=== PATIENT | female | born 1975 | race Native Hawaiian/Other Pacific Islander ===

== ENCOUNTER 2020-05-23 11:12 | Outpatient (REF) | payer OTHER, SELFPAY | END 2020-05-23 11:13 | disposition home or self-care (01) | LOC: HO.LAB 11:12 | PROVIDERS: PCP Internal Medicine; Visit Provider Internal Medicine | DX: Z20.828 Contact with and (suspected) exposure to other viral communicable diseases (principal) | CPT/HCPCS: 87635 ==

== ENCOUNTER 2020-06-13 11:13 | Outpatient (REF) | payer OTHER, SELFPAY | END 2020-06-13 11:14 | disposition home or self-care (01) | LOC: HO.LAB 11:13 | PROVIDERS: PCP Internal Medicine; Visit Provider Internal Medicine | DX: Z20.828 Contact with and (suspected) exposure to other viral communicable diseases (principal) | CPT/HCPCS: C9803; U0003 ==

== ENCOUNTER 2020-07-04 15:38 | Outpatient (REF) | payer OTHER, SELFPAY ==
[2020-07-06 11:09] LABS: BV Int Neg Control Negative (Negative); BV Int Pos Control Positive (Positive)
[2020-07-08 06:37] LABS: CT PCR NOT DETECTED (Not Detect.); NG PCR NOT DETECTED (Not Detect.)
[2020-07-08 18:37] LABS: HPV mRNA E6/E7 rflx Not Detected (Not Detected)
== END 2020-07-04 15:39 | disposition home or self-care (01) ==
LOC: HO.LAB 15:38
PROVIDERS: Visit Provider Obstetrics & Gynecology
DX: Z01.419 Encounter for gynecological examination (general) (routine) without abnormal findings (principal); Z11.3 Encounter for screening for infections with a predominantly sexual mode of transmission
CPT/HCPCS: 87480; 87491; 87510; 87591; 87624; 87625; 87660; 88142

== ENCOUNTER 2020-09-20 13:11 | Outpatient (REF) | payer OTHER, SELFPAY ==
--- NOTE | ~2020-09-20 | MM_ITS ---
EXAMINATION: MM SCREENING DIGITAL BREAST TOMOSYNTHESIS, BILATERAL CLINICAL INFORMATION: Screening. Asymptomatic. 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 The lifetime risk of breast cancer based on the Tyrer-Cuzick Model is 10%. COMPARISON: Mammography: 10/29/2018, 06/25/2017, 11/01/2015 TECHNIQUE: Digital breast tomosynthesis is performed in both the craniocaudal and mediolateral oblique views along with computer-aided detection (CAD). Synthesized 2D images are generated from the tomosynthesis. FINDINGS: There are scattered areas of fibroglandular density (ACR BI-RADS breast composition Category b). There is chronic dominant mass posterior 3:00 left breast with central biopsy clip marker and circumscribed margins corresponding to the fibroadenoma on history. There is a smaller stable circumscribed nodule posterior 11:00 right breast approximately 1.5 x 1.2 cm. There is no significant mass or developing density. No abnormal calcifications. The axilla and skin contours are unremarkable. MM/MM tomosynthesis screening BI IMPRESSION: 1. No mammographic evidence of malignancy. 2. Stable mass posterior 3:00 left breast and posterior 11:00 right breast. ASSESSMENT: BI-RADS 2: Benign RECOMMENDATION: Routine annual mammography screening. This patient's information was entered into a reminder system with a target due date for their next mammogram.
== END 2020-09-20 13:12 | disposition home or self-care (01) ==
LOC: HO.MAMMO 13:11
PROVIDERS: PCP Internal Medicine; Visit Provider Obstetrics & Gynecology
DX: Z12.31 Encounter for screening mammogram for malignant neoplasm of breast (principal)
CPT/HCPCS: 77063; 77067

== ENCOUNTER 2021-12-21 08:13 | Outpatient (REF) | payer OTHER, SELFPAY ==
[2021-12-21 08:36] LABS: MANUAL DIFF FLAG NO
[2021-12-21 08:39] LABS: Basophils Percent Auto 0.6 % (0-2); Eosinophils Absolute Auto 0.3 X10*3/uL (0.0-0.4); Eosinophils Percent Auto 4.3 % (0-4); Hematocrit 39.6 % (37.0-47.0); Hemoglobin 13.3 g/dl (12.0-16.0); Imm Gran Abs Auto 0.01 X10*3/uL (0.00-0.03); Imm Gran Pct Auto 0.2 % (0.0-0.4); Lymphocytes Absolute Auto 1.6 X10*3/uL (1.2-4.9); Lymphocytes Percent Auto 24.2 % (20-40); Mean Corpuscular HGB Conc 33.6 g/dl (31.0-35.0); Mean Corpuscular Hemoglobin 27.2 pg (27.0-33.0); Mean Platelet Volume 9.3 fL (9.4-12.3); Monocytes Absolute Auto 0.5 X10*3/uL (0.1-1.2); Monocytes Percent Auto 7.9 % (2-11); Neutrophils Absolute Auto 4.1 x10*3/uL (2.0-8.3); Neutrophils Percent Auto 62.8 % (45-73); Platelet Count 337 X10*3/uL (160-400); Red Blood Count 4.89 X10*6/uL (4.20-5.50); Red Cell Distribution Width 13.2 % (11.0-16.0); White Blood Count 6.6 X10*3/uL (4.8-10.8)
[2021-12-21 09:19] LABS: Alanine Aminotransferase 26 U/L (0-31); Albumin Level 4.1 g/dL (3.5-5.0); Alkaline Phosphatase 103 U/L (39-117); Anion Gap 12 (12-20); Aspartate Amino Transferase 17 U/L (5-31); Bilirubin Total 0.5 mg/dL (0.0-1.0); Blood Urea Nitrogen 11 mg/dL (9-16); Calcium 9.1 mg/dL (8.4-10.2); Carbon Dioxide 20 mmol/L (22-29); Chloride 108 mmol/L (96-108); Cholesterol 256 mg/dL; Estimated Glomerular Filt Rate > 60; Glucose Fasting 96 mg/dL (60-99); HDL Cholesterol 47 mg/dL; LDL Cholesterol Calculated 186 mg/dl; Sodium 136 mmol/L (135-145); Total Protein 7.6 g/dL (6.5-8.0); Triglycerides 119 mg/dL
[2021-12-21 09:42] LABS: Thyroid Stimulating Hormone 4.87 uIU/mL (0.32-4.0)
[2021-12-25 05:52] LABS: TS Negative Control Passed; TS Panel A 0; TS Panel B 0; TS Positive Control Passed; TSpotTB Negative (Negative)
[2021-12-26 12:26] LABS: Vitamin D 25-OH, D2 <4 ng/mL; Vitamin D 25-OH, D3 29 ng/mL; Vitamin D 25-OH, Total 29 ng/mL (30-100)
== END 2021-12-21 08:14 | disposition home or self-care (01) ==
LOC: HO.LAB 08:13
PROVIDERS: PCP Internal Medicine; Visit Provider Internal Medicine
DX: Z11.1 Encounter for screening for respiratory tuberculosis (principal); E03.9 Hypothyroidism, unspecified; E66.9 Obesity, unspecified; D64.9 Anemia, unspecified; E55.9 Vitamin D deficiency, unspecified
CPT/HCPCS: 36415; 80053; 80061; 82306; 84443; 85025; 86481

== ENCOUNTER 2022-02-06 14:01 | Outpatient (REF) | payer OTHER, SELFPAY ==
--- NOTE | ~2022-02-06 | US_ITS ---
EXAMINATION: US THYROID CLINICAL INFORMATION: Goiter. COMPARISON: Ultrasound thyroid soft tissues neck 07/02/2018. TECHNIQUE: Linear transducer grayscale and color Doppler examination with attention to the region of the thyroid. FINDINGS: SIZE: Measurements of the thyroid lobes and nodules are given in sagittal, anteroposterior and transverse dimensions respectively. Right Thyroid Lobe: 4.4 x 1.9 x 1.4 cm, volume 5.8 mL. Previously 3.2 x 1.0 x 1.1 cm, volume 2.1 mL. Parenchyma: The gland echotexture is homogeneous. Thyroid vascularity is normal. Left Thyroid Lobe: 3.6 x 1.4 x 1.4 cm, volume 3.6 mL. Previously 2.9 x 0.9 x 1.2 cm, volume 1.7 mL. Parenchyma: The gland echotexture is homogeneous. Thyroid vascularity is normal. Isthmus: 0.3 cm in maximum AP dimension. Previously 0.2 cm. Estimated total number of nodules greater than or equal to 1 cm: 0. [facility] nodules are described as follows: NODES: No lymphadenopathy is seen in the tissue surrounding the thyroid gland. US/US thyroid IMPRESSION: Normal thyroid ultrasound..
== END 2022-02-06 14:02 | disposition home or self-care (01) ==
LOC: HO.US 14:01
PROVIDERS: Visit Provider Internal Medicine
DX: E04.9 Nontoxic goiter, unspecified (principal)
CPT/HCPCS: 76536

== ENCOUNTER 2022-03-08 08:48 | Emergency (ER) | payer OTHER, SELFPAY ==
[2022-03-08 08:57] VITALS: BP 176/97; PULSE 77; RESP 20; TEMP 36.6; O2SAT 99; BMI 34.5
--- NOTE | 2022-03-08 09:55 | ED.GENADULT ---
HPI - General Adult General Chief complaint: General Medical Stated complaint: high blood pressure Time Seen by Provider: 03/08/22 09:21 Source: patient and translator and interpreter Mode of arrival: ambulatory History of Present Illness HPI narrative: 46-year-old female without significant past medical history presents with concerns of having a headache as well as mild dizziness yesterday and when she checked her blood pressure she noted that it was elevated in the 170s over 120s by her home blood pressure machine. She denies any prior history of high blood pressure and denies any associated visual/speech/auditory changes and denies any numbness/tingling/weakness. Patient is currently denies any headache or dizziness. Patient denies any chest pain/palpitations, and at this time otherwise feels well. Related Data Previous Rx's Medication Instructions Recorded melatonin 10 mg tablet 10 mg PO BEDTIME PRN sleep 90 days 08/15/21 #90 tabs Allergies Allergy/AdvReac Type Severity Reaction Status Date / Time oxycodone [OXYCODONE] Allergy Intermediate TACHYCARDIA Verified 12/25/21 16:30 prednisolone Allergy Intermediate hives Verified 12/25/21 16:30 Review of Systems Review of Systems: Pertinent positives and negatives as stated in HPI 10 point review of systems otherwise negative. [facility] Past Medical History Source: nursing notes reviewed Medical History Goiter Hypothyroidism Hypovitaminosis D Obese Physical exam Pure hypercholesterolemia Surgical History No pertinent past surgical history Family History Family History Father No problems noted. Mother No problems noted. Social History Social History Housing: House Alcohol intake: never Patient Tobacco Use Status: Never used Tobacco e-Cigarette/Vaping Use: Never Used Second Hand Smoke Exposure: No Advance Directives: No Advance Directives Information Provided: Yes service: No Current occupational status: employed Current occupational exposures/hazards: No Sexual orientation: Straight/Heterosexual Gender identity: Female Cognitive needs: No Hearing needs: No Vision needs: Yes Physical Exam ED Vital Signs: Vital Signs - 24 hr 03/08/22 08:57 Temperature 97.9 F Pulse Rate 77 Respiratory Rate 20 Blood Pressure 176/97 H Pulse Oximetry 99 Oxygen Delivery Method Room Air BMI result Body Mass Index 34.5 VITAL SIGNS: Reviewed. GENERAL: Well developed, well nourished, in no acute distress. HEAD: Normocephalic/atraumatic EYES: PERRLA, EOMI EARS: Ext canals without abnormality OROPHARYNX: no oral lesions noted, posterior pharynx clear LUNGS: Normal breath sounds. No adventitious sounds or accessory muscle use. SpO2<99> CARDIOVASCULAR: Regular rate and rhythm without noted murmurs, no JVD or lower extremity edema. ABDOMEN: Soft, non-tender, non-distended with bowel sounds. MUSCULOSKELETAL: No tenderness, deformities, or effusions noted on gross inspection. EXTREMITIES: No cyanosis, clubbing or edema. SKIN: Inspection of the skin reveals no rashes NEUROLOGIC: Alert and oriented x 4. Strength and sensation to light touch were grossly intact x 4, no facial asymmetry, no pronator drift, cranial nerves 2-12 are grossly intact, heel-tom is without abnormality and patient ambulates with a steady gait. Course Course Course Narrative: 46-year-old female with history and clinical presentation suggestive of elevated blood pressure will insure no cardiopulmonary etiology to contribute as well as testing for COVID-19. Patient is asymptomatic at this time. Review of all investigations without acute findings. These results were discussed with patient at bedside and as patient is asymptomatic will initiate a lifestyle changes with strong recommendations to follow up with the primary care provider. Medical Decision Making Lab Data Result diagrams: 03/08/22 10:22 03/08/22 10:22 Labs: Lab Results 03/08/22 03/08/22 03/08/22 Range/Units 10:22 10:22 10:22 WBC 10.0 (4.8-10.8) X10*3/uL RBC 5.27 (4.20-5.50) X10*6/uL Hgb 14.1 (12.0-16.0) g/dl Hct 42.1 (37.0-47.0) % MCV 79.9 L (80.0-98.0) fL MCH 26.8 L (27.0-33.0) pg MCHC 33.5 (31.0-35.0) g/dl RDW 13.5 (11.0-16.0) % Plt Count 285 (160-400) X10*3/uL MPV 9.4 (9.4-12.3) fL Immature Gran % (Auto) 0.3 (0.0-0.4) % Neut % (Auto) 66.1 (45-73) % Lymph % (Auto) 23.2 (20-40) % [place] % (Auto) 6.9 (2-11) % Eos % (Auto) 3.1 (0-4) % Baso % (Auto) 0.4 (0-2) % Lymph # (Auto) 2.3 (1.2-4.9) X10*3/uL [place] # (Auto) 0.7 (0.1-1.2) X10*3/uL Eos # (Auto) 0.3 (0.0-0.4) X10*3/uL Baso # (Auto) 0.0 (0.0-0.2) X10*3/uL Abs Immat Gran (auto) 0.03 (0.00-0.03) X10*3/uL Absolute Neuts (auto) 6.6 (2.0-8.3) x10*3/uL Absolute Nucleated RBC 0.000 (0.0-0.012) X10*3/uL Nucleated RBC % (auto) 0.0 (0.0-0.2) /100WBC Sodium 136 (135-145) mmol/L Potassium 3.9 (3.3-5.1) mmol/L Chloride 105 (96-108) mmol/L Carbon Dioxide 23 (22-29) mmol/L Anion Gap 12 (12-20) BUN 7 L (9-16) mg/dL Creatinine 0.76 (0.5-1.4) mg/dL Estim Creat Clear Calc 106.3 Estimated GFR > 60 Random Glucose 92 (60-115) mg/dL Calcium 8.7 (8.4-10.2) mg/dL Total Bilirubin 0.4 (0.0-1.0) mg/dL AST 17 (5-31) U/L ALT 20 (0-31) U/L Alkaline Phosphatase 100 (39-117) U/L Troponin I High Sens < 3.5 (<3.5-17.0) ng/L Total Protein 7.4 (6.5-8.0) g/dL Albumin 4.0 (3.5-5.0) g/dL COVID-19 (EMILIE) (Negative) COVID-19 Clin Com 03/08/22 Range/Units 10:22 WBC (4.8-10.8) X10*3/uL RBC (4.20-5.50) X10*6/uL Hgb (12.0-16.0) g/dl Hct (37.0-47.0) % MCV (80.0-98.0) fL MCH (27.0-33.0) pg MCHC (31.0-35.0) g/dl RDW (11.0-16.0) % Plt Count (160-400) X10*3/uL MPV (9.4-12.3) fL Immature Gran % (Auto) (0.0-0.4) % Neut % (Auto) (45-73) % Lymph % (Auto) (20-40) % [place] % (Auto) (2-11) % Eos % (Auto) (0-4) % Baso % (Auto) (0-2) % Lymph # (Auto) (1.2-4.9) X10*3/uL [place] # (Auto) (0.1-1.2) X10*3/uL Eos # (Auto) (0.0-0.4) X10*3/uL Baso # (Auto) (0.0-0.2) X10*3/uL Abs Immat Gran (auto) (0.00-0.03) X10*3/uL Absolute Neuts (auto) (2.0-8.3) x10*3/uL Absolute Nucleated RBC (0.0-0.012) X10*3/uL Nucleated RBC % (auto) (0.0-0.2) /100WBC Sodium (135-145) mmol/L Potassium (3.3-5.1) mmol/L Chloride (96-108) mmol/L Carbon Dioxide (22-29) mmol/L Anion Gap (12-20) BUN (9-16) mg/dL Creatinine (0.5-1.4) mg/dL Estim Creat Clear Calc Estimated GFR Random Glucose (60-115) mg/dL Calcium (8.4-10.2) mg/dL Total Bilirubin (0.0-1.0) mg/dL AST (5-31) U/L ALT (0-31) U/L Alkaline Phosphatase (39-117) U/L Troponin I High Sens (<3.5-17.0) ng/L Total Protein (6.5-8.0) g/dL Albumin (3.5-5.0) g/dL COVID-19 (EMILIE) Negative (Negative) COVID-19 Clin Com See Note ECG Data Attestation: I personally reviewed and interpreted this ECG as follows: Prior ECG tracings: available for review Interpretation: Normal sinus rhythm, HR-70, no STEMI, GA/QRS/QTC are within normal limits. Discharge Plan Discharge Clinical Impression: Elevated blood pressure reading Patient Disposition: Home, Self-Care Instructions: DASH Eating Plan (ED), Hypertension (ED) Additional Instructions: 1. Se descubri? que tiene presi?n arterial elevada, el primer paso es cambios en el estilo de speedy, se le case proporcionado recomendaciones para consideraciones diet?ivone. [place] incluir?a aumentar el nivel de actividad al caminar en combinaci?n con la reducci?n de peso. 2. Llame hoy mismo al consultorio de east proveedor de atenci?n primaria para programar justo jason de reevaluaci?n. Regrese a la christophe de emergencias si los s?ntomas empeoran. Prescriptions: No Action melatonin 10 mg tablet 10 mg PO BEDTIME PRN (Reason: sleep) 90 Days Qty: 90 0RF Referrals: Caro Alcazar MD [Primary Care Provider] - Print Language: Citizen Of [place]
--- NOTE | 2022-03-08 10:01 | ECG_ITS ---
Test Reason : Hypertension Blood Pressure : / mmHG Vent. Rate : 070 BPM Atrial Rate : 070 BPM P-R Int : 162 ms QRS Dur : 084 ms QT Int : 412 ms P-R-T Axes : 066 005 028 degrees QTc Int : 444 ms Normal sinus rhythm Normal ECG When compared with ECG of 08-JUL-2011 16:55, Vent. rate has decreased BY 37 BPM Referred By: Cady Nathan Electronically Signed By:CHARLENE GARCIA
[2022-03-08 10:29] LABS: Basophils Percent Auto 0.4 % (0-2); Eosinophils Absolute Auto 0.3 X10*3/uL (0.0-0.4); Eosinophils Percent Auto 3.1 % (0-4); Hematocrit 42.1 % (37.0-47.0); Hemoglobin 14.1 g/dl (12.0-16.0); Imm Gran Abs Auto 0.03 X10*3/uL (0.00-0.03); Imm Gran Pct Auto 0.3 % (0.0-0.4); Lymphocytes Absolute Auto 2.3 X10*3/uL (1.2-4.9); Lymphocytes Percent Auto 23.2 % (20-40); MANUAL DIFF FLAG NO; Mean Corpuscular HGB Conc 33.5 g/dl (31.0-35.0); Mean Corpuscular Hemoglobin 26.8 pg (27.0-33.0); Mean Corpuscular Volume 79.9 fL (80.0-98.0); Mean Platelet Volume 9.4 fL (9.4-12.3); Monocytes Absolute Auto 0.7 X10*3/uL (0.1-1.2); Monocytes Percent Auto 6.9 % (2-11); Neutrophils Absolute Auto 6.6 x10*3/uL (2.0-8.3); Neutrophils Percent Auto 66.1 % (45-73); Platelet Count 285 X10*3/uL (160-400); Red Blood Count 5.27 X10*6/uL (4.20-5.50); Red Cell Distribution Width 13.5 % (11.0-16.0)
[2022-03-08 10:46] LABS: Alanine Aminotransferase 20 U/L (0-31); Alkaline Phosphatase 100 U/L (39-117); Anion Gap 12 (12-20); Aspartate Amino Transferase 17 U/L (5-31); Bilirubin Total 0.4 mg/dL (0.0-1.0); Blood Urea Nitrogen 7 mg/dL (9-16); Calcium 8.7 mg/dL (8.4-10.2); Carbon Dioxide 23 mmol/L (22-29); Chloride 105 mmol/L (96-108); Creatinine Clr Calc Pharmacy 106.3; Estimated Glomerular Filt Rate > 60; Glucose Random 92 mg/dL (60-115); Potassium 3.9 mmol/L (3.3-5.1); Sodium 136 mmol/L (135-145); Total Protein 7.4 g/dL (6.5-8.0)
[2022-03-08 10:49] LABS: COVID-19 Test Negative (Negative); IDNOW Serial# 16C4AD1C
[2022-03-08 10:52] LABS: Troponin-I High Sensitivity < 3.5 ng/L (<3.5-17.0)
== END 2022-03-08 11:40 | disposition home or self-care (01) ==
PROVIDERS: Emergency Provider Student in an Organized Health Care Education/Training Program; PCP Internal Medicine
DX: R51.9 Headache, unspecified (principal); R03.0 Elevated blood-pressure reading, without diagnosis of hypertension; Z20.822 Contact with and (suspected) exposure to COVID-19
CPT/HCPCS: 80053; 84484; 85025; 87635; 93005; 99283

== ENCOUNTER 2022-04-30 08:01 | Outpatient (REF) | payer OTHER, SELFPAY ==
[2022-04-30 10:46] LABS: Alanine Aminotransferase 58 U/L (0-31); Albumin Level 4.4 g/dL (3.5-5.0); Alkaline Phosphatase 141 U/L (39-117); Anion Gap 16 (12-20); Aspartate Amino Transferase 33 U/L (5-31); Bilirubin Total 0.6 mg/dL (0.0-1.0); Blood Urea Nitrogen 11 mg/dL (9-16); Carbon Dioxide 23 mmol/L (22-29); Chloride 103 mmol/L (96-108); Cholesterol 256 mg/dL; Estimated Glomerular Filt Rate > 60; Glucose Fasting 92 mg/dL (60-99); HDL Cholesterol 53 mg/dL; LDL Cholesterol Calculated 181 mg/dl; Potassium 3.9 mmol/L (3.3-5.1); Sodium 138 mmol/L (135-145); Total Protein 7.7 g/dL (6.5-8.0); Triglycerides 114 mg/dL
[2022-04-30 11:08] LABS: Free T4 (Free Thyroxine) 0.81 ng/dL (0.71-1.85); Thyroid Stimulating Hormone 20.01 uIU/mL (0.32-4.0)
[2022-05-02 13:32] LABS: Thyroid Peroxidase Antibodies 136 IU/mL (<9)
[2022-05-02 17:11] LABS: Thyroglobulin Antibodies 8 IU/mL (< or = 1)
== END 2022-04-30 08:02 | disposition home or self-care (01) ==
LOC: HO.10HDL 08:01
PROVIDERS: Visit Provider Internal Medicine
DX: E78.5 Hyperlipidemia, unspecified (principal); E03.9 Hypothyroidism, unspecified; E66.9 Obesity, unspecified
CPT/HCPCS: 36415; 80053; 80061; 84439; 84443; 86376; 86800

== ENCOUNTER 2022-08-16 08:52 | Outpatient (REF) | payer OTHER, SELFPAY ==
[2022-08-16 11:30] LABS: Alanine Aminotransferase 25 U/L (0-31); Albumin Level 3.9 g/dL (3.5-5.0); Alkaline Phosphatase 95 U/L (39-117); Anion Gap 12 (12-20); Aspartate Amino Transferase 18 U/L (5-31); Bilirubin Total 0.4 mg/dL (0.0-1.0); Blood Urea Nitrogen 13 mg/dL (9-16); Calcium 9.1 mg/dL (8.4-10.2); Carbon Dioxide 22 mmol/L (22-29); Chloride 107 mmol/L (96-108); Cholesterol 228 mg/dL; Estimated Glomerular Filt Rate > 60; Glucose Fasting 92 mg/dL (60-99); HDL Cholesterol 47 mg/dL; LDL Cholesterol Calculated 141 mg/dl; Potassium 3.7 mmol/L (3.3-5.1); Sodium 137 mmol/L (135-145); Total Protein 7.1 g/dL (6.5-8.0); Triglycerides 202 mg/dL
[2022-08-16 11:34] LABS: Thyroid Stimulating Hormone 2.23 uIU/mL (0.32-4.0)
== END 2022-08-16 08:53 | disposition home or self-care (01) ==
LOC: HO.10HDL 08:52
PROVIDERS: Visit Provider Internal Medicine
DX: E78.5 Hyperlipidemia, unspecified (principal); R74.01 Elevation of levels of liver transaminase levels; E03.9 Hypothyroidism, unspecified
CPT/HCPCS: 36415; 80053; 80061; 84443

== ENCOUNTER 2022-11-07 09:14 | Outpatient (REF) | payer OTHER, SELFPAY ==
[2022-11-07 11:43] LABS: Thyroid Stimulating Hormone 1.71 uIU/mL (0.32-4.0)
[2022-11-09 16:58] LABS: TS Negative Control Passed; TS Panel A 0; TS Panel B 0; TS Positive Control Passed; TSpotTB Negative (Negative)
== END 2022-11-07 09:15 | disposition home or self-care (01) ==
LOC: HO.10HDL 09:14
PROVIDERS: Visit Provider Internal Medicine
DX: Z11.1 Encounter for screening for respiratory tuberculosis (principal); E03.9 Hypothyroidism, unspecified
CPT/HCPCS: 36415; 84443; 86481

== ENCOUNTER 2023-08-20 09:04 | Outpatient (REF) | payer OTHER, SELFPAY ==
[2023-08-20 12:16] LABS: Thyroid Stimulating Hormone 7.54 uIU/mL (0.32-4.0); Vitamin D 25-OH Total 34.9 ng/mL (>30)
== END 2023-08-20 09:05 | disposition home or self-care (01) ==
LOC: HO.10HDL 09:04
PROVIDERS: Visit Provider Internal Medicine
DX: E55.9 Vitamin D deficiency, unspecified (principal); E03.9 Hypothyroidism, unspecified
CPT/HCPCS: 36415; 82306; 84443

== ENCOUNTER 2023-08-21 15:47 | Outpatient (AMB) | payer OTHER, SELFPAY ==
[2023-08-21 15:56] VITALS: BP 140/96; BMI 35.2
--- NOTE | 2023-08-21 15:56 | MHC.PC.OV ---
Vital Signs 08/21/23 15:56 08/21/23 16:30 Height 5 ft 6 in Weight 218 lb BMI 35.2 BP 140/96 H 140/90 H Blood Pressure Location Lt brachial Lt brachial Position Sitting Sitting Intake Visit Reasons: PE Intake Note: Patient here for a physical exam End Finder Twisting Department Required: No Accompanied by: Self / Same As Patient Allergies oxycodone [OXYCODONE] Allergy (Intermediate, Verified 08/21/23 16:05) TACHYCARDIA prednisolone Allergy (Intermediate, Verified 08/21/23 16:05) hives Medication List - Last Reconciled 08/21/23 by Caro Desir MD levothyroxine 112 mcg PO DAILY 90 days Tobacco use date assessed: 08/21/23 Dental Screening Dental Screen Date: 08/21/23 Did you have a dental visit in the last 12 months?: Yes Did you have a dental problem in the last 6 months where you did not have access to dental care?: No Was dental information given to patient?: Patient has dentist HPI HPI Comments History of Present Illness Details This is a 48-year-old female that comes for her physical exam. Last mammogram was done 2020 and I will order a mammogram. Pap smear done 2019. Has never had a colonoscopy and has no family history of colon cancer. I will order Cologuard. Labs were discussed and she is aware that TSH was elevated and levothyroxine dose was change. She is aware she needs to repeated in 6 weeks. Has onychomycosis and wants treatment. Patient aware that terbinafine can cause transaminitis and liver panel will be checked in 3 months. [facility] Medical History (Updated 08/21/23 @ 16:22 by Caro Desir MD) Pure hypercholesterolemia Goiter Physical exam Hypovitaminosis D Obese Hypothyroidism Surgical History (Updated 08/21/23 @ 16:09 by Caro Desir MD) Previous section No pertinent past surgical history Family History (Updated 08/21/23 @ 16:11 by Caro Desir MD) Father No problems noted. Mother Brain aneurysm Social History Housing: House Alcohol intake: never Patient Tobacco Use Status: Never used Tobacco e-Cigarette/Vaping Use: Never Used Second Hand Smoke Exposure: No service: No Current occupational status: employed Current occupational exposures/hazards: No Sexual orientation: Straight/Heterosexual Gender identity: Female Cognitive needs: No Hearing needs: No Vision needs: Yes Female Reproductive History Menstrual Age of Menarche: 13 Questionnaire PHQ-9 Over the last 2 weeks, how often have you been bothered by any of the following problems? 1. Little interest or pleasure in doing things: not at all 2. Feeling down, depressed, or hopeless: not at all 3. Trouble falling or staying asleep, or sleeping too much: not at all 4. Feeling tired or having little energy: not at all 5. Poor appetite or overeating: not at all 6. Feeling bad about yourself - or that you are a failure or have let yourself or your family down: not at all 7. Trouble concentrating on things, such as reading the newspaper or watching television: not at all 8. Moving or speaking so slowly that other people could have noticed. Or the opposite - being so fidgety or restless that you have been moving around a lot more than usual: not at all 9. Thoughts that you would be better off or of hurting yourself in some way: not at all Total score: 0 Depression Screening Interpretation: Negative Depression Screening Done: Yes 95837 - PHQ-9 Billing: Yes Source: Developed by Drs. Bruce Apple, Claire Alejandro, Anand Marte and colleagues, with an educational rema from [employer]. Thrive Questionnaire Date Thrive assessed: 08/21/23 I am a: Patient What is your living situation today?: I have a steady place to live Within the past 12 months, did the food you bought not last and you didn't have the money to get more?: Never true Within the past 12 months, did you worry whether your food would run out before you got money to buy more?: Never true Do you have trouble paying for medicines?: No Do you have trouble getting transportation to medical appointments?: No Do you have trouble paying your heating and electricity bill?: No Do you have trouble taking care of your child, family member or friend?: No Do you have trouble with day-to-day activities such as bathing, preparing meals, shopping, managing finances, etc.?: No Are you currently unemployed and looking for a job?: No Are you interested in more education?: No Please select the resources that you would like help with: None Currently or been in a relationship where the following occur: no concerns reported THRIVE Score: 0 AUDIT C Alcohol Use Questionnaire (AUDIT-C) 1. How often do you have a drink containing alcohol?: Never Total Score: 0 MARGAUX-7 AMB Questionnaire MARGAUX-7 Date MARGAUX - 7 assessed: 08/21/23 Feeling nervous, anxious, or on edge: 0 = Not at all Not being able to stop or control worryin = Not at all Worrying too much about different things: 0 = Not at all Trouble relaxin = Not at all Being so restless that it is hard to sit still: 0 = Not at all Becoming easily annoyed or irritable: 0 = Not at all Feeling afraid as if something awful might happen: 0 = Not at all Total MARGAUX-7 score (0-4 normal; 5-9 mild; 10-14 moderate; 15-21 severe): 0 Source: Developed by Drs. Bruce Apple, Claire Alejandro, Anand Marte and colleagues, with an educational rema from [employer]. MARGAUX-7 Assessment Billing MARGAUX-7 Assessment Tool: MARGAUX-7 Assessment 32782 Review of Systems Const All systems reviewed & are unremarkable except as noted in HPI and below Eyes Reports no additional complaints, Denies change in vision and Denies other visual disturbances Card Denies chest pain at rest, Denies chest pain with activity, Denies edema, Denies irregular heart rhythm, Denies claudication, Denies dyspnea, Denies dyspnea on exertion, Denies orthopnea, Denies paroxysmal nocturnal dyspnea and Denies slow heart rate Resp Denies cough, Denies dyspnea and Denies dyspnea on exertion GI Denies abdominal pain, Denies change in bowel habits, Denies excessive flatus, Denies nausea and Denies vomiting Denies urinary incontinence, Denies urinary hesitancy and Denies urinary urgency Musc Denies abnormal gait, Denies atrophy, Denies deformity and Denies limited range of motion Skin/Breast Denies bleeding lesions, Denies changing lesions and Denies rash Neuro Denies abnormal gait, Denies behavioral changes, Denies confusion and Denies lack of coordination Psych Denies behavioral changes and Denies confusion Physical exam (Primary Care) Vital Signs: Last Vital Signs BP 140/96 H 08/21/23 15:56 BMI result Body Mass Index 35.2 Tobacco/Smoking Status: Tobacco use Status Tobacco use date assessed 08/21/23 08/21/23 16:01 Patient Tobacco Use Status Never used Tobacco 08/21/23 16:01 e-Cigarette/Vaping Use Never Used 08/21/23 16:01 PHQ-9: PHQ-9 Score PHQ-9: Total score 0 08/21/23 16:13 Depression Screening Interpretation: Negative Thrive Assessment: Date of Thrive Assessment Date Thrive assessed 08/21/23 08/21/23 16:01 Currently or been in a relationship where the following occur: no concerns reported Const General: No confusion Orientation/consciousness: patient oriented x3 and No confusion HENMT Head: Yes normal to inspection, Yes normocephalic and Yes atraumatic Ears: external ears normal Eyes General: appearance normal, both eyes and all related structures Eyelids: Yes eyelids normal Conjunctivae: conjunctivae normal Neck Neck: Yes normal visual inspection and Yes supple Resp Effort & Inspection: normal respiratory effort Auscultation: clear to auscultation bilaterally Cardio Jugular venous distension: no JVD Rate: regular rate Rhythm: regular rhythm Heart sounds: S1 normal heart sound present and S2 normal heart sound present GI Inspection: Yes normal to inspection Palpation (GI): Soft to palpation and nontender Auscultation: normal bowel sounds Skin General skin exam: no rashes or lesions noted Neuro General: patient oriented x3, no focal motor deficits and No confusion Extrem General: Yes full ROM Psych Appearance: grossly normal Office Procedures Flu Questionnaire Does the patient have a severe egg allergy?: No Immunizations flu vacc [id number] 6mos up(PF) 60 mcg(15 mcgx4)/0.5 mL IM syringe Performing Provider: Caro Desir MD [facility] Documented (not given) by: KHURRAM Carlos on 08/21/23 16:01 Reason Not Given: Patient Refused Assessment and Plan Assessment & Plan (1) Physical exam: Code(s): Z00.00 - Encounter for general adult medical examination without abnormal findings Plan: Repeat in a year. Orders: Orders Influenza [id number] Immunization Today Z23 - Encounter for immunization MM screening mammo BI Today Z12.31 - Encounter for screening mammogram for malignant neoplasm of breast Liver Panel 3 Months B35.1 - Tinea unguium Referrals Cologuard Test Z12.11 - Encounter for screening for malignant neoplasm of colon, Z12.12 - Encounter for screening for malignant neoplasm of rectum Medications: New terbinafine HCl 250 mg PO DAILY 90 tabs 0RF 90 days B35.1 - Tinea unguium Coding Level of Care Code Est Pt Prev Care 40-64y(58656) Diagnoses Physical exam Z00.00 Additional Codes MARGAUX-7 Assessment Billing - MARGAUX-7 Assessment Tool: MARGAUX-7 Assessment 42926 ([id number]) Time Spent (min) 32
[2023-08-21 16:30] VITALS: BP 140/90
== END 2023-08-21 16:18 | disposition home or self-care (01) ==
PROVIDERS: Visit Provider Internal Medicine
DX: Z00.00 Encounter for general adult medical examination without abnormal findings (principal); E03.9 Hypothyroidism, unspecified; E66.9 Obesity, unspecified; Z68.35 Body mass index [BMI] 35.0-35.9, adult
CPT/HCPCS: 99396

== ENCOUNTER → 2023-10-13 13:45 | Outpatient (BNV) | payer OTHER, SELFPAY | PROVIDERS: PCP Internal Medicine; Visit Provider Radiology Diagnostic Radiology | DX: Z12.31 Encounter for screening mammogram for malignant neoplasm of breast (principal) | CPT/HCPCS: 77063; 77067 ==

== ENCOUNTER 2023-10-13 15:13 | Outpatient (REF) | payer OTHER, SELFPAY ==
--- NOTE | ~2023-10-13 | MM_ITS ---
EXAMINATION: MM SCREENING DIGITAL BREAST TOMOSYNTHESIS, BILATERAL CLINICAL INFORMATION: Screening. Asymptomatic. COMPARISON: Mammography: This study is compared with prior exams dating back to 2017. TECHNIQUE: Digital breast tomosynthesis is performed in both the craniocaudal and mediolateral oblique views along with computer-aided detection (CAD). Synthesized 2D images are generated from the tomosynthesis. FINDINGS: There are scattered areas of fibroglandular density (ACR BI-RADS breast composition Category b). There are no significant masses, abnormal calcifications, or other abnormalities. There is a tissue marker associated with a benign, previously biopsied, unchanged 37 mm oval mass of the upper outer quadrant of the left breast. This was documented to be a fibroadenoma. MM/MM tomosynthesis screening BI IMPRESSION: No mammographic evidence of malignancy. ASSESSMENT: BI-RADS BI-RADS 2 - Benign Findings RECOMMENDATION: Routine annual mammography screening. 1 year F/U This examination should not preclude the clinical evaluation of a suspicious palpable abnormality. This patient's information was entered into a reminder system with a target due date for their next mammogram.
== END 2023-10-13 15:14 | disposition home or self-care (01) ==
LOC: HO.MAMMO 15:13
PROVIDERS: PCP Internal Medicine; Visit Provider Internal Medicine
DX: Z12.31 Encounter for screening mammogram for malignant neoplasm of breast (principal)
CPT/HCPCS: 77063; 77067

== ENCOUNTER 2024-05-21 08:18 | Outpatient (REF) | payer OTHER, SELFPAY ==
[2024-05-21 10:43] LABS: Alanine Aminotransferase 59 U/L (0-31); Albumin Level 4.1 g/dL (3.5-5.0); Alkaline Phosphatase 140 U/L (39-117); Aspartate Amino Transferase 36 U/L (5-31); Bilirubin Direct 0.1 mg/dL (0.0-0.5); Bilirubin Total 0.4 mg/dL (0.0-1.0); Thyroid Stimulating Hormone 1.92 uIU/mL (0.32-4.0); Total Protein 7.6 g/dL (6.5-8.0)
== END 2024-05-21 08:19 | disposition home or self-care (01) ==
LOC: HO.10HDL 08:18
PROVIDERS: Visit Provider Internal Medicine
DX: B35.1 Tinea unguium (principal); E03.9 Hypothyroidism, unspecified
CPT/HCPCS: 36415; 80076; 84443

== ENCOUNTER 2024-06-21 16:04 | Outpatient (AMB) | payer OTHER, SELFPAY ==
--- NOTE | 2024-06-21 16:31 | A.OFFPC_ITS ---
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 Her last thyroid function test this month reported normal levels while on levothyroxine 112 mcg daily. The patient has a history of hypothyroidism, managed with levothyroxine with stable control and no concerns noted during this visit. She presents with elevated blood pressure, currently recorded as 150/90 mmHg. Three weeks later, a follow-up is intended to determine whether antihypertensive medication is necessary. The patient denies a history of chest pain or shortness of breath. She describes a weight increase from a previous 218 pounds to her current 230 pounds, resulting in a BMI of 37.3, indicating obesity class II. No alcohol consumption is reported, and the patient has maintained a routine of walking as part of her exercise. [facility] Medical History (Updated 06/21/24 @ 19:29 by Caro Desir MD) Pure hypercholesterolemia Goiter Physical exam Hypovitaminosis D Obese Hypothyroidism Surgical History Previous section No pertinent past surgical history Family History Father No problems noted. Mother Brain aneurysm Social History Housing: House Alcohol intake: never Patient Tobacco Use Status: Never used Tobacco e-Cigarette/Vaping Use: Never Used Second Hand Smoke Exposure: No service: No Current occupational status: employed Current occupational exposures/hazards: No Sexual orientation: Straight/Heterosexual Gender identity: Female Cognitive needs: No Hearing needs: No Vision needs: Yes Female Reproductive History Menstrual Age of Menarche: 13 Questionnaire Thrive Questionnaire Date Thrive assessed: 08/21/23 MARGAUX-7 AMB Questionnaire MARGAUX-7 Date MARGAUX - 7 assessed: 08/21/23 Source: Developed by Drs. Bruce Apple, Claire Alejandro, Anand Marte and colleagues, with an educational rema from [email or web address]. Review of Systems Const All systems reviewed & are unremarkable except as noted in HPI and below Card Denies chest pain at rest, Denies chest pain with activity, Denies edema, Denies irregular heart rhythm, Denies claudication, Denies dyspnea, Denies dyspnea on exertion, Denies orthopnea, Denies paroxysmal nocturnal dyspnea and Denies slow heart rate Resp Denies cough, Denies dyspnea and Denies dyspnea on exertion GI Denies abdominal pain, Denies change in bowel habits, Denies excessive flatus, Denies nausea and Denies vomiting Neuro Denies behavioral changes and Denies lack of coordination Psych Denies behavioral changes Physical exam (Primary Care) Vital Signs: Last Vital Signs BP 150/90 H 06/21/24 16:33 BMI result Body Mass Index 37.3 BMI Assessment/Plan discussion: High BMI High, discussed plan: lifestyle, weight reduction, dietary and physical activity Tobacco/Smoking Status: Tobacco use Status Tobacco use date assessed 08/21/23 06/21/24 16:40 Patient Tobacco Use Status Never used Tobacco 06/21/24 16:40 e-Cigarette/Vaping Use Never Used 06/21/24 16:40 Thrive Assessment: Date of Thrive Assessment Date Thrive assessed 08/21/23 06/21/24 16:40 Resp Effort & Inspection: normal respiratory effort Auscultation: clear to auscultation bilaterally Cardio Jugular venous distension: no JVD Rate: regular rate Rhythm: regular rhythm Heart sounds: S1 normal heart sound present and S2 normal heart sound present Extrem General: Yes full ROM Office Procedures Flu Questionnaire Does the patient have a severe egg allergy?: No Immunizations Fluarix Triv [id number] (PF) 45 mcg (15 mcg x 3)/0.5 mL IM syringe Performing Provider: Caro Desir MD Performing Location: [facility] [place] [facility] Documented (not given) by: CaroKHURRAM Vásquez on 06/21/24 16:44 Reason Not Given: Patient Refused Coding Level of Care Code Est Pt Level 3 (17172) Complex EM visit Add On G2211 Diagnoses Hypertension I10 Hypothyroidism E03.9 Class 2 obesity with body mass index (BMI) of 37.0 to 37.9 in adult E66.812; Z 68.37 Time Spent (min) 19 Assessment & Plan Assessment & Plan (1) Hypertension: Code(s): I10 - Essential (primary) hypertension Category: Medical (2) Hypothyroidism: Code(s): E03.9 - Hypothyroidism, unspecified Category: Medical (3) Class 2 obesity with body mass index (BMI) of 37.0 to 37.9 in adult: Code(s): E66.812 - Obesity, class 2; Z68.37 - Body mass index [BMI] 37.0-37.9, adult Category: Medical Plan - Essential Hypertension: Scheduled a follow-up in three weeks to reassess blood pressure levels and consider the necessity of antihypertensive medication. - Obesity Class II: Advised on weight management strategies, including increased aerobic exercise and dietary modifications to reduce salt intake. - Hypothyroidism: Continue current levothyroxine dosage as thyroid levels are stable. Patient was informed and verbally consented to the use of an ambient scribe for clinic note documentation during this visit. I discussed with the patient the normal results of her thyroid function tests, and we agreed that continuing the current levothyroxine dosage is appropriate. Regarding her elevated blood pressure, I emphasized the importance of dietary salt reduction and increased physical activity, specifically recommending 30 minutes of aerobic exercise five times per week. We decided that a follow-up appointment in three weeks is necessary to evaluate whether antihypertensive medications will be required. I also encouraged lifestyle changes to address her obesity, noting that weight loss could positively impact her blood pressure and overall health. The patient expressed understanding and commitment to these recommendations. Orders: Orders Lipid Panel Today E78.00 - Pure hypercholesterolemia, unspecified, E78.5 - Hyperlipidemia, unspecified Vitamin D 25-OH Total Today E55.9 - Vitamin D deficiency, unspecified Influenza [id number] Immunization Today Z23 - Encounter for immunization Comprehensive Met. Panel Today E78.00 - Pure hypercholesterolemia, unspecified Thyroid Stimulating Hormone Today E03.9 - Hypothyroidism, unspecified Patient Instructions: - Continue taking levothyroxine 112 mcg daily. - Return for a blood pressure check in three weeks. - Reduce dietary salt intake. - Engage in 30 minutes of aerobic exercise five days per week. - Monitor for any symptoms of chest pain or shortness of breath and report if they occur. - Schedule labs needed for the July physical examination.
[2024-06-21 16:33] VITALS: BP 150/90; BMI 37.3
== END 2024-06-21 17:09 | disposition home or self-care (01) ==
PROVIDERS: PCP Internal Medicine; Visit Provider Internal Medicine
DX: I10 Essential (primary) hypertension (principal); E03.9 Hypothyroidism, unspecified; E66.812 Obesity, class 2; Z68.37 Body mass index [BMI] 37.0-37.9, adult; Z23 Encounter for immunization

== ENCOUNTER → 2024-06-21 16:04 | Outpatient (BNVA) | payer OTHER, SELFPAY | PROVIDERS: PCP Internal Medicine; Visit Provider Internal Medicine | DX: E03.9 Hypothyroidism, unspecified (principal); I10 Essential (primary) hypertension; E66.812 Obesity, class 2; Z68.37 Body mass index [BMI] 37.0-37.9, adult | CPT/HCPCS: 90471; 99212 ==

== ENCOUNTER → 2024-07-09 15:33 | Outpatient (BNVA) | payer OTHER, SELFPAY | PROVIDERS: PCP Internal Medicine ==

== ENCOUNTER → 2024-07-30 14:43 | Outpatient (BNVA) | payer OTHER, SELFPAY | PROVIDERS: PCP Internal Medicine ==

== ENCOUNTER 2024-08-20 09:07 | Outpatient (REF) | payer OTHER, SELFPAY ==
[2024-08-20 13:04] LABS: Alanine Aminotransferase 61 U/L (0-31); Albumin Level 3.9 g/dL (3.5-5.0); Anion Gap 10 (12-20); Aspartate Amino Transferase 35 U/L (5-31); Bilirubin Total 0.3 mg/dL (0.0-1.0); Blood Urea Nitrogen 15 mg/dL (9-16); Calcium 9.1 mg/dL (8.4-10.2); Carbon Dioxide 22 mmol/L (22-29); Chloride 110 mmol/L (96-108); Cholesterol 227 mg/dL (<200); Estimated Glomerular Filt Rate > 60; Glucose Random 97 mg/dL (60-115); HDL Cholesterol 48 mg/dL (>40); LDL Cholesterol Calculated 147 mg/dL (<100); Sodium 138 mmol/L (135-145); Total Protein 7.7 g/dL (6.5-8.0); Triglycerides 162 mg/dL (<150)
[2024-08-20 13:31] LABS: Thyroid Stimulating Hormone 0.34 uIU/mL (0.32-4.0); Vitamin D 25-OH Total 25.3 ng/mL (>30)
[2024-08-20 14:18] LABS: Alkaline Phosphatase 149 U/L (39-117)
== END 2024-08-20 09:08 | disposition home or self-care (01) ==
LOC: HO.10HDL 09:07
PROVIDERS: Visit Provider Internal Medicine
DX: E78.5 Hyperlipidemia, unspecified (principal); E78.00 Pure hypercholesterolemia, unspecified; E03.9 Hypothyroidism, unspecified; E55.9 Vitamin D deficiency, unspecified
CPT/HCPCS: 36415; 80053; 80061; 82306; 84443

== ENCOUNTER 2024-08-23 16:31 | Outpatient (AMB) | payer OTHER, SELFPAY ==
--- NOTE | 2024-08-23 17:08 | MHC.PC.OV ---
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 Flat Surfacer Jewel Language: Neuropathologist Name: Caro Desir MD Information Interpreted: non-clinical & clinical Accompanied by: Self / Same As Patient Allergies oxycodone [OXYCODONE] Allergy (Intermediate, Verified 08/23/24 17:24) TACHYCARDIA prednisolone Allergy (Intermediate, Verified 08/23/24 17:24) hives Medication List - Last Reconciled 08/23/24 by Caro Desir MD levothyroxine 112 mcg PO DAILY 90 days losartan 25 mg PO DAILY 90 days Tobacco use date assessed: 08/23/24 Dental Screening Dental Screen Date: 08/23/24 Did you have a dental visit in the last 12 months?: No Did you have a dental problem in the last 6 months where you did not have access to dental care?: No Was dental information given to patient?: Patient has dentist HPI HPI Comments History of Present Illness Details The patient is a 49-year-old female presenting for an annual physical examination. She has a history of essential hypertension managed with losartan 25 mg daily. She also has hypothyroidism for which she is taking levothyroxine 112 micrograms daily, with thyroid function tests indicating stability. Her liver enzymes have been persistently elevated, potentially indicative of hepatic steatosis. The patient underwent a prior section, and her family history includes both parents passing away due to COVID-19 within one day of each other. She also reports a desire to lose weight, which has been difficult despite maintaining her current weight for several months. The patient's last mammogram was performed at [facility] before 2019, and her next tetanus vaccination is due in 2027. - Tetanus vaccination completed in 2018; next dose due in 2027. - Mammogram last performed before 2019 at [facility]; update needed. - Thyroid function tests show adequate control with current levothyroxine dose. - Elfrida Risk Score calculated at 2.6% for 10-year cardiovascular risk; no pharmacotherapy indicated for cholesterol. - Discussion of potential hepatic steatosis and recommendation for a follow-up ultrasound to evaluate liver status. - Advised on low-fat diet to manage elevated liver enzymes and potential fatty liver. - Advised against additional pharmacotherapy for weight loss due to potential elevation in blood pressure. [facility] Medical History (Updated 08/23/24 @ 17:34 by Caro Desir MD) Pure hypercholesterolemia Goiter Physical exam Hypovitaminosis D Obese Hypothyroidism Surgical History Previous section No pertinent past surgical history Family History Father No problems noted. Mother Brain aneurysm Social History Housing: House Alcohol intake: never Patient Tobacco Use Status: Never used Tobacco e-Cigarette/Vaping Use: Never Used Second Hand Smoke Exposure: No service: No Current occupational status: employed Current occupational exposures/hazards: No Sexual orientation: Straight/Heterosexual Gender identity: Female Cognitive needs: No Hearing needs: No Vision needs: Yes Female Reproductive History Menstrual Age of Menarche: 13 Questionnaire PHQ-9 Over the last 2 weeks, how often have you been bothered by any of the following problems? 1. Little interest or pleasure in doing things: not at all 2. Feeling down, depressed, or hopeless: not at all 3. Trouble falling or staying asleep, or sleeping too much: not at all 4. Feeling tired or having little energy: not at all 5. Poor appetite or overeating: not at all 6. Feeling bad about yourself - or that you are a failure or have let yourself or your family down: not at all 7. Trouble concentrating on things, such as reading the newspaper or watching television: not at all 8. Moving or speaking so slowly that other people could have noticed. Or the opposite - being so fidgety or restless that you have been moving around a lot more than usual: not at all 9. Thoughts that you would be better off or of hurting yourself in some way: not at all Total score: 0 Depression Screening Interpretation: Negative Depression Screening Done: Yes 31285 - PHQ-9 Billing: Yes Source: Developed by Drs. Bruce Apple, Claire Alejandro, Anand Marte and colleagues, with an educational rema from [employer]. Thrive Questionnaire Date Thrive assessed: 08/23/24 I am a: Patient What is your living situation today?: I have a steady place to live Within the past 12 months, did the food you bought not last and you didn't have the money to get more?: Never true Within the past 12 months, did you worry whether your food would run out before you got money to buy more?: Never true Do you have trouble paying for medicines?: No Do you have trouble getting transportation to medical appointments?: No Do you have trouble paying your heating and electricity bill?: No Do you have trouble taking care of your child, family member or friend?: No Do you have trouble with day-to-day activities such as bathing, preparing meals, shopping, managing finances, etc.?: No Are you currently unemployed and looking for a job?: No Are you interested in more education?: No Please select the resources that you would like help with: None Currently or been in a relationship where the following occur: No concerns reported THRIVE Score: 0 AUDIT C Alcohol Use Questionnaire (AUDIT-C) 1. How often do you have a drink containing alcohol?: Never Total Score: 0 Score Reviewed/Action Taken: No MARGAUX-7 AMB Questionnaire MARGAUX-7 Date MARGAUX - 7 assessed: 08/23/24 Feeling nervous, anxious, or on edge: 0 = Not at all Not being able to stop or control worryin = Not at all Worrying too much about different things: 0 = Not at all Trouble relaxin = Not at all Being so restless that it is hard to sit still: 0 = Not at all Becoming easily annoyed or irritable: 0 = Not at all Feeling afraid as if something awful might happen: 0 = Not at all Total MARGAUX-7 score (0-4 normal; 5-9 mild; 10-14 moderate; 15-21 severe): 0 Source: Developed by Drs. Bruce Apple, Claire Alejandro, Anand Marte and colleagues, with an educational rema from [employer]. MARGAUX-7 Assessment Billing MARGAUX-7 Assessment Tool: MARGAUX-7 Assessment 74349 Review of Systems Const All systems reviewed & are unremarkable except as noted in HPI and below Card Denies chest pain at rest, Denies chest pain with activity, Denies edema, Denies irregular heart rhythm, Denies claudication, Denies dyspnea, Denies dyspnea on exertion, Denies orthopnea, Denies paroxysmal nocturnal dyspnea and Denies slow heart rate Resp Denies cough, Denies dyspnea and Denies dyspnea on exertion Neuro Denies behavioral changes and Denies lack of coordination Psych Denies behavioral changes Physical exam (Primary Care) Vital Signs: Last Vital Signs BP 136/80 08/23/24 17:09 BMI result Body Mass Index 37.0 BMI Assessment/Plan discussion: High BMI High, discussed plan: lifestyle, weight reduction, dietary and physical activity Tobacco/Smoking Status: Tobacco use Status Tobacco use date assessed 08/23/24 08/23/24 17:20 Patient Tobacco Use Status Never used Tobacco 08/23/24 17:10 e-Cigarette/Vaping Use Never Used 08/23/24 17:10 PHQ-9: PHQ-9 Score PHQ-9: Total score 0 08/23/24 17:34 Depression Screening Interpretation: Negative Thrive Assessment: Date of Thrive Assessment Date Thrive assessed 08/23/24 08/23/24 17:10 Currently or been in a relationship where the following occur: No concerns reported [facility] Head: Yes normal to inspection, Yes normocephalic and Yes atraumatic Ears: external ears normal Eyes General: appearance normal, both eyes and all related structures Eyelids: Yes eyelids normal Conjunctivae: conjunctivae normal Neck Neck: Yes normal visual inspection and Yes supple Resp Effort & Inspection: normal respiratory effort Auscultation: clear to auscultation bilaterally Cardio Jugular venous distension: no JVD Rate: regular rate Rhythm: regular rhythm Heart sounds: S1 normal heart sound present and S2 normal heart sound present GI Inspection: Yes normal to inspection Palpation (GI): Soft to palpation and nontender Auscultation: normal bowel sounds Skin General skin exam: no rashes or lesions noted Neuro General: no focal motor deficits Extrem General: Yes full ROM Psych Appearance: grossly normal Office Procedures Flu Questionnaire Does the patient have a severe egg allergy?: No Immunizations Fluarix Triv [id number] (PF) 45 mcg (15 mcg x 3)/0.5 mL IM syringe Performing Provider: Caro Desir MD [facility] [place] [facility] Documented (not given) by: KHURRAM Carlos on 08/23/24 17:35 Reason Not Given: Patient Refused Coding Level of Care Code Est Pt Level 3 (31415) Est Pt Prev Care 40-64y(38885) Diagnoses Physical exam Z00.00 Transaminitis R74.01 Additional Codes MARGAUX-7 Assessment Billing - MARGAUX-7 Assessment Tool: MARGAUX-7 Assessment 34831 ([id number]) PHQ-9 - 86522 - PHQ-9 Billing: Yes ([id number]) Time Spent (min) 34 Assessment & Plan Assessment & Plan (1) Physical exam: Code(s): Z00.00 - Encounter for general adult medical examination without abnormal findings Category: Medical (2) Transaminitis: Code(s): R74.01 - Elevation of levels of liver transaminase levels Category: Medical Plan - Continue losartan 25 mg daily for hypertension management. - Maintain levothyroxine 112 micrograms daily for hypothyroidism; continue routine thyroid function monitoring. - Recommend hepatic ultrasound to assess liver status due to persistently elevated liver enzymes. - Implement diet modifications focusing on reducing fats to address potential hepatic steatosis. - No change in cholesterol management as Elfrida Risk Score is below pharmacotherapy threshold. - Discussed lifestyle modifications to aid in weight management rather than initiating pharmacological intervention. - Schedule follow-up mammogram as it is overdue. Patient was informed and verbally consented to the use of an ambient scribe for clinic note documentation during this visit. During the visit, I discussed with the patient the management of her hypertension and hypothyroidism, which are currently well-controlled with ongoing medication. I reviewed the potential for hepatic steatosis indicated by elevated liver enzymes and recommended dietary changes as a first-line intervention. We discussed scheduling an abdominal ultrasound to evaluate liver health further. I emphasized the importance of health maintenance interventions, including the overdue mammogram and maintaining the current vaccination schedule. The patient was advised to adhere to a low-fat diet to help with liver health and was informed of the negative implications of using medication for weight loss given the potential to increase blood pressure. The patient was receptive to these recommendations. Orders: Orders US abdomen comp w elastography Today R74.01 - Elevation of levels of liver transaminase levels Influenza [id number] Immunization Today Z23 - Encounter for immunization Vitamin D 25-OH Total 6 Months E55.9 - Vitamin D deficiency, unspecified Liver Panel 6 Months R74.01 - Elevation of levels of liver transaminase levels Thyroid Stimulating Hormone 6 Months E03.9 - Hypothyroidism, unspecified Patient Instructions: - Continue medications as prescribed for hypothyroidism and hypertension. - Schedule and complete the recommended mammogram. - Follow a low-fat diet to support liver health. - Schedule an abdominal ultrasound to evaluate liver function. - Maintain healthy lifestyle choices to support weight management. - Report any new or worsening symptoms promptly.
[2024-08-23 17:09] VITALS: BP 136/80; BMI 37.0
== END 2024-08-23 17:35 | disposition home or self-care (01) ==
PROVIDERS: PCP Internal Medicine; Visit Provider Internal Medicine
DX: Z00.00 Encounter for general adult medical examination without abnormal findings (principal); R74.01 Elevation of levels of liver transaminase levels

== ENCOUNTER → 2024-08-23 16:31 | Outpatient (BNVA) | payer OTHER, SELFPAY | PROVIDERS: PCP Internal Medicine; Visit Provider Internal Medicine | DX: Z00.00 Encounter for general adult medical examination without abnormal findings (principal); I10 Essential (primary) hypertension; E03.9 Hypothyroidism, unspecified; R74.01 Elevation of levels of liver transaminase levels; E55.9 Vitamin D deficiency, unspecified; Z28.21 Immunization not carried out because of patient refusal; Z79.899 Other long term (current) drug therapy | CPT/HCPCS: 96127; 99212; 99396 ==

== ENCOUNTER 2024-10-08 08:13 | Outpatient (REF) | payer OTHER, SELFPAY ==
--- NOTE | ~2024-10-08 | US_ITS ---
EXAMINATION: US ABDOMEN COMPLETE WITH LIVER ELASTOGRAPHY HISTORY: R74.01 - Elevation of levels of liver transaminase levels TECHNIQUE: Real-time grayscale ultrasound imaging of the abdomen was performed and images were reviewed. COMPARISON: There are no prior studies for comparison. FINDINGS: Liver: The right lobe of the liver measures 14.9 cm in size. The left lobe of the liver measures 9.8 cm in size. The liver demonstrates normal homogeneous echotexture. No focal mass or intrahepatic biliary ductal dilatation is identified. There appear to be 2 vessels in the hepatic hilum, one of which demonstrates hepatopedal flow and the other demonstrating hepatofugal flow. It is uncertain whether this represents vascular tortuosity or an aberrant vessel. Bidirectional flow and a single vessel appears less likely. Ultrasound elastography of the liver was performed with 10 separate measurements of the liver parenchyma with the patient in the supine position. Measurements were obtained approximately 2 cm below Lorri's capsule and perpendicular to the capsule. Images are of satisfactory quality. The median shear wave velocity is 1.13 m/s. The interquartile range/median (IQR/median) is 0.13. Gallbladder and biliary tree: The gallbladder is unremarkable, without evidence of calculi, wall thickening, or pericholecystic fluid. There is no sonographic Combs sign. The common bile duct is normal in caliber measuring 2 mm. Kidneys: The right kidney measures 12.1 cm in length. The left kidney measures 11.4 cm in length. The kidneys are unremarkable, without evidence of masses, hydronephrosis, or calculi. Pancreas: The pancreatic head, neck, and body are unremarkable. The pancreatic tail is obscured by bowel gas. Spleen: The spleen is normal in size and contour, measuring 10.5 cm in length. Abdominal aorta and inferior vena cava: The visualized portions of the abdominal aorta and inferior vena cava are normal in caliber. There is no free fluid in the abdomen. US/US abdomen comp w elastography IMPRESSION: No intrinsic liver abnormality is identified. There are 2 vessels in the hepatic hilum demonstrating; one demonstrating hepatopedal flow and the other demonstrating hepatofugal flow. It is uncertain whether this represents vascular tortuosity or an aberrant vessel. Abdominal CT may be helpful for further evaluation. The median shear wave velocity in the liver is 1.13 m/s, corresponding to a median liver stiffness of 3.88 kPa. The IQR/median value is 0.13. This is indicative of a quality data set. Findings are indicative of a normal elastography value with a low likelihood of severe fibrosis or cirrhosis. REFERENCE: Society of Radiologists in Ultrasound Liver Stiffness Thresholds (2020): LIVER STIFFNESS THRESHOLDS: *Shear wave velocity less than 1.3 m/s (Liver Stiffness equal or less than 5 kPa): High probability of being normal. *Shear wave velocity less than 1.7 m/s (Liver Stiffness less than 9 kPa): In the absence of other known clinical signs, rules out compensated advanced chronic liver disease. *Shear wave velocity between 1.7-2.1 m/s (Liver Stiffness 9-13 kPa): Suggestive of compensated advanced chronic liver disease but need further test for confirmation. *Shear wave velocity between 2.1-2.4 m/s (Liver Stiffness 13-17 kPa): Rules in compensated advanced chronic liver disease. *Shear wave velocity greater than 2.4 m/s (Liver Stiffness over 17 kPa): Suggestive of clinically significant portal hypertension. QUALITY OF DATA SET: *IQR/Median value equal or less than 0.15 implies a quality data set. *IQR/Median value over 0.15 implies a poor quality data set. SIGNIFICANT CHANGE FROM PRIOR EXAM: Significant change if liver stiffness measurement is 10% or greater from prior exam. OTHER CONSIDERATIONS: The stage of liver fibrosis may be overestimated in the setting of acute hepatitis, liver inflammation, elevated liver function tests, hepatic vascular congestion, obstructive cholestasis, non-fasting state, and infiltrative diseases such as amyloidosis and lymphoma. In some patients with NAFLD, the liver stiffness thresholds for compensated advanced chronic liver disease may be lower. In causes other than viral hepatitis and NAFLD, liver stiffness thresholds are not well established. Electronically signed by: Bruce Celestin MD 10/08/2024 09:29 AM EDT
== END 2024-10-08 08:14 | disposition home or self-care (01) ==
LOC: HO.US 08:13
PROVIDERS: PCP Internal Medicine; Visit Provider Internal Medicine
DX: R74.01 Elevation of levels of liver transaminase levels (principal)
CPT/HCPCS: 76700; 76981

== ENCOUNTER → 2024-10-08 08:15 | Outpatient (BNV) | payer OTHER, SELFPAY | PROVIDERS: PCP Internal Medicine; Visit Provider Radiology Diagnostic Radiology | DX: R74.01 Elevation of levels of liver transaminase levels (principal) | CPT/HCPCS: 76700 ==